=== PATIENT | male | born 1980 ===

== ENCOUNTER 2022-03-11 06:50 | Emergency (ER) | payer MEDICAID ==
[~2022-03-11] VITALS: Ht 170.2 cm; Wt 137.0 kg
[2022-03-11 07:01] VITALS: BP 186/116
[2022-03-11] MEDS ORDERED: IPRATROPIUM BROMIDE (0.02%) 0.5MG/2.5ML NEB HHN STA (09:21)
[2022-03-11] MEDS ORDERED: ALBUTEROL (0.083%) 2.5MG/3ML NEB HHN STA (09:21)
[2022-03-11] MEDS ORDERED: PREDNISONE 20MG TABLET PO STA (09:21)
[2022-03-11] MEDS ORDERED: P20 MT (11:13)
== END 2022-03-11 11:29 | disposition home or self-care (01) ==
LOC: ER 06:50
DX: J45.909 Unspecified asthma, uncomplicated (principal); J20.9 Acute bronchitis, unspecified
CPT/HCPCS: 71045; 93005; 94640; 99283; J7512; Z7610